=== PATIENT | male | born 1980 | race Caucasian/White ===

== ENCOUNTER 2017-07-27 16:13 | Emergency (ER) | payer MEDICAID ==
[~2017-07-27] VITALS: Ht 182.9 cm; Wt 69.0 kg
[2017-07-27 16:26] VITALS: BP 146/84
[2017-07-27] MEDS ORDERED: BACDS PO (16:35)
== END 2017-07-27 16:59 | disposition home or self-care (01) ==
LOC: ER 16:15
DX: J02.9 Acute pharyngitis, unspecified (principal); K02.9 Dental caries, unspecified; E11.9 Type 2 diabetes mellitus without complications; Z88.5 Allergy status to narcotic agent; Z88.1 Allergy status to other antibiotic agents
CPT/HCPCS: 99283

== ENCOUNTER 2021-08-19 12:30 | Emergency (ER) | payer MEDICAID ==
[~2021-08-19] VITALS: Ht 182.9 cm; Wt 74.0 kg
[2021-08-19 12:41] VITALS: BP 119/91
[2021-08-19 16:45] LABS: CLARITY,URINE CLOUDY (Clear); COLOR,URINE YELLOW (Yellow); GLUCOSE, URINE NEGATIVE (Neg); KETONES,URINE NEGATIVE (Neg); LEUKOCYTE ESTERASE ,URINE MODERATE (Neg); NITRITES, URINE NEGATIVE (Neg); OCCULT BLOOD,URINE MODERATE (Neg); PROTEIN,URINE NEGATIVE (Neg); UROBILINOGEN,URINE 0.2 E.U/dL (0.2-1.0)
[2021-08-19 16:50] LABS: UA COLLECTION TYPE CLN CATCH MIDSTREAM
[2021-08-19 16:58] LABS: BACTERIA,URINE 3+ /HPF (Neg); RBC,URINE 50-100 /HPF (0-2); SQUAMOUS EPITHELIAL CELL,UR FEW /LPF (FEW); WBC CLUMPS,URINE MANY /HPF (NEGATIVE); WBC,URINE 50-100 /HPF (0-4)
--- NOTE | 2021-08-19 19:13 | NUR ---
patient in the [facility] with blood in urine he first noticed last night . he states that last time this happen ecoli in the urine . sharp when he has to urination. he stats that he is having flank pain on the left side. denies , denies taking any medication .
[2021-08-19] MEDS ORDERED: sulfamethoxazole/trimethoprim DS (800/160mg) tablet PO ONE (20:35)
[2021-08-19] MEDS ORDERED: SULF1TAB49 PO (20:45)
== END 2021-08-19 21:20 | disposition home or self-care (01) ==
LOC: ER 12:31
DX: N39.0 Urinary tract infection, site not specified (principal); R31.9 Hematuria, unspecified; J45.909 Unspecified asthma, uncomplicated; E11.9 Type 2 diabetes mellitus without complications; Z88.0 Allergy status to penicillin; Z88.1 Allergy status to other antibiotic agents; Z88.5 Allergy status to narcotic agent
CPT/HCPCS: 81001; 87077; 87088; 87186; 99283